=== PATIENT | male | born 1975 | race Caucasian/White ===

== ENCOUNTER → 2020-04-23 | Emergency (ER) | payer BC ==
[~2020-04-23] VITALS: Ht 180.3 cm; Wt 65.8 kg
[~2020-04-23] MED LIST: CEPHALEXIN 500500 M3 PO; CLEOCIN HCL300 MG PO; IBUPROFEN 800800 M1 PO; NORCO 5-325 TA1 EAC2 PO; [UNRECOGNIZED DRUG - OTHER]
[2020-04-23 17:48] VITALS: BP 135/102
== END ==
LOC: M.ERS 17:41
DX: K04.7 Periapical abscess without sinus (principal); K02.9 Dental caries, unspecified; R22.0 Localized swelling, mass and lump, head